=== PATIENT | male | born 1985 | race African-American/Black ===

== ENCOUNTER 2020-11-03 03:03 | Emergency (ER) | payer OTHER ==
[~2020-11-03] VITALS: Ht 170.2 cm; Wt 81.7 kg
[2020-11-03 03:05] VITALS: BP 149/104
[2020-11-03] MEDS ORDERED: CORTISPORIN OTI10 ML OTIC (03:40)
== END 2020-11-03 04:00 | disposition home or self-care (01) ==
LOC: ER 03:03
DX: H92.03 Otalgia, bilateral (principal)